=== PATIENT | female | born 1950 | race Caucasian/White ===

== ENCOUNTER 2020-02-22 09:29 | Day surgery (SDC) | payer MEDICARE, MEDICAID, SELFPAY ==
[2020-02-19 15:09] VITALS: BMI 42.8
[2020-02-22] MEDS: sodium chloride 0.9% 1,000 ML 30 ML IV (09:45)
[2020-02-22 10:02] VITALS: BP 166/86; PULSE 93; RESP 18; TEMP 36.2; O2SAT 96
--- NOTE | 2020-02-22 10:04 | ANES.PREANE2 ---
Pre-Anesthetic Assessment Pre-Anesthetic Assessment: Height/Weight: Height 1.6 m Weight 109.769 kg Preop Diagnosis: gerd Proposed Procedure: Operation Date: 02/22/20 10:40 Proposed Procedures p EGD 05289 [id number] R10.13 Z12.11(Not Applicable) - Andrzej Rogers MD s Colonoscopy(Not Applicable) - Andrzej Rogers MD Was Beta Albertina taken within 24 hours: N/A Exam: Pre-Anes Outpt Exam: alert, oriented x 3, clear to auscultation bilaterally and regular rate & rhythm Airway: Submandibular: WNL Cervical ROM: WNL MP: 2 Dentition: False History/ROS: No significant history except as noted Pulmonary: Comments: bronchitis CV/HEM: CV/HEM: CHF and HTN Comments: pacemaker : : Chronic renal Insufficiency Hepatic: Hepatic: Hepatitis (C) GI: GI: GERD Metabolic: Metabolic: DM and Morbid obesity Musc/skel: Musc/skel: Weakness Neuropsych: Neuropsych: Dementia Anesthetic Plan: ASA status: 3 Anesthesia: Anesthesia Evaluation and MAC Risk of > 500 ml blood loss (7ml/kg in children): No PFSH Anesthesia PFSH: Social History Smoking and tobacco status: former smoker Alcohol intake: never Housing: House Marital status: Data Anesthesia Cardiac Studies: No Data to Display
[2020-02-22 10:23] LABS: Glucose Point of Care 44 mg/dL (70-110)
[2020-02-22] MEDS: dextrose 50% syringe 50 mL 25 ML IVP (10:25)
[2020-02-22 10:45] VITALS: BP 136/80; PULSE 100; RESP 16; TEMP 36.2; O2SAT 98
[2020-02-22 11:05] VITALS: BP 125/70; PULSE 98; RESP 18; O2SAT 95
[2020-02-22 11:33] LABS: Glucose Point of Care 89 mg/dL (70-110)
[2020-02-26 10:18] LABS: H. Pylori / CLO Test Positive
--- NOTE | 2020-03-09 12:29 | PM.OPSURHP ---
Providers/Chief Complaint Chief Complaint: egd/colonscopy History of Present Illness Gladis Junior is a 69 year old female Medications/Allergies Home Medications Medication Instructions Recorded Confirmed Last Taken Type cetirizine 10 mg tablet 10 mg PO DAILY PRN tab 02/03/20 02/29/20 02/21/20 History hydrocodone 10 mg-acetaminophen 1 tab PO Q8H PRN 02/03/20 02/29/20 02/21/20 History 325 mg tablet insulin lispro 100 unit/mL 60 unit SUBCUT BID ml 02/03/20 02/29/20 02/21/20 History subcutaneous cartridge oxybutynin chloride 5 mg tablet 5 mg PO BID 02/03/20 02/29/20 02/21/20 History venlafaxine 150 mg 150 mg PO DAILY 02/03/20 02/29/20 02/21/20 History capsule,extended release 24 hr gabapentin 300 mg PO TID 02/19/20 02/29/20 02/21/20 History lisinopril 20 mg PO DAILY 02/19/20 02/29/20 02/21/20 History nitrofurantoin monohyd/m-cryst 100 mg PO DAILY 02/19/20 02/29/20 02/21/20 History furosemide 40 mg PO DAILY 02/22/20 02/29/20 02/21/20 History metformin 500 mg PO BID 02/22/20 02/29/20 02/21/20 History pantoprazole 40 mg PO DAILY #30 tab 02/22/20 02/29/20 Unknown Rx doxycycline hyclate 100 mg tablet 100 mg PO BID #20 tab 02/26/20 02/29/20 Unknown Rx metronidazole 500 mg tablet 500 mg PO TID #30 tab 02/26/20 02/29/20 Unknown Rx Allergies Allergy/AdvReac Type Severity Reaction Status Date / Time No Known Allergies Allergy Unverified 02/29/20 11:22 PFSH PFSH: Social History Smoking and tobacco status: former smoker Alcohol intake: never Housing: House Marital status: Vital Signs Vitals Signs: Last Vital Signs Temp 97.2 F L 02/22/20 10:45 Pulse 98 02/22/20 11:05 Resp 18 02/22/20 11:05 BP 125/70 02/22/20 11:05 Pulse Ox 95 02/22/20 11:05 Coding Level of Care Code Acute Director Of Maternity Services for [facility]
== END 2020-02-22 11:25 | disposition home or self-care (01) ==
PROVIDERS: Visit Provider Internal Medicine
PROC: 0DJ08ZZ Inspection of Upper Intestinal Tract, Via Natural or Artificial Opening Endoscopic (ICD-10-PCS; CPT 43235; principal; 2020-02-22 10:40)
DX: R10.13 Epigastric pain (principal); K29.70 Gastritis, unspecified, without bleeding; Z87.891 Personal history of nicotine dependence; I11.0 Hypertensive heart disease with heart failure; I50.9 Heart failure, unspecified; Z95.0 Presence of cardiac pacemaker; K21.9 Gastro-esophageal reflux disease without esophagitis; E11.9 Type 2 diabetes mellitus without complications; Z79.4 Long term (current) use of insulin; E66.01 Morbid (severe) obesity due to excess calories; Z68.41 Body mass index [BMI] 40.0-44.9, adult; F03.90 Unspecified dementia, unspecified severity, without behavioral disturbance, psychotic disturbance, mood disturbance, and anxiety
CPT/HCPCS: 12345; 36416; 43239; 82962; 87077; J2704; J7030